=== PATIENT | female | born 1990 | race African-American/Black ===

== ENCOUNTER 2017-06-12 08:14 | Emergency (ER) | payer MEDICAID ==
[2012-05-18 05:59] VITALS: BMI 39.2
[2017-06-12 09:29] LABS: HCG URINE NEGATIVE (NEGATIVE)
== END 2017-06-12 10:08 | disposition home or self-care (01) ==
LOC: D.ER 08:14
PROVIDERS: Family Medicine
DX: J06.9 Acute upper respiratory infection, unspecified (principal); R05 Cough; R68.83 Chills (without fever); R53.83 Other fatigue; R51 Headache; M79.1 Myalgia

== ENCOUNTER 2017-07-19 09:38 | Emergency (ER) | payer MEDICAID ==
[2012-05-18 05:59] VITALS: BMI 39.2
== END 2017-07-19 13:07 | disposition home or self-care (01) ==
LOC: D.ER 09:38
DX: S89.92XA Unspecified injury of left lower leg, initial encounter (principal); W19.XXXA Unspecified fall, initial encounter; Y93.89 Activity, other specified; Y92.019 Unspecified place in single-family (private) house as the place of occurrence of the external cause; S83.512A Sprain of anterior cruciate ligament of left knee, initial encounter; F17.200 Nicotine dependence, unspecified, uncomplicated